=== PATIENT | female | born 2005 | race Hispanic/Latino ===

== ENCOUNTER 2024-08-08 12:31 | Emergency (ER) | payer OTHER ==
[2024-08-08] MEDS ORDERED: predniSONE 20 MG TAB ONE (12:54)
[2024-08-08] MEDS ORDERED: Dexamethasone 10 MG/ML VIAL ONE (12:54)
[2024-08-08] MEDS ORDERED: Albuterol 2.5 MG (3 mL) NEB ONE (13:10)
[2024-08-08] MEDS ORDERED: Ipratropium/Albuterol 3 ML NEB ONE (13:10)
== END 2024-08-08 14:16 | disposition home or self-care (01) ==
LOC: ERS 12:31
DX: R05.1 Acute cough (principal); R06.2 Wheezing
CPT/HCPCS: 71045; 87428; 94644; 96372; J1100; J7512; J7611; J7620

== ENCOUNTER 2025-05-17 20:38 | Observation (INO) | payer MEDICAID, OTHER ==
[2025-05-17] MEDS ORDERED: Ondansetron PF 4 MG/2 ML Vial ONE (22:17)
[2025-05-17 23:15] LABS: #Basophils 0.05 10x3/uL (0.0-0.2); #Eosinophils Less than 0.03 10x3/uL (0.0-0.7); #Monocytes 0.70 10x3/uL (0.11-0.59); #Neutrophils 12.64 10x3/uL (1.40-6.50); %Basophils 0.3 % (0.0-1.0); %Eosinophils 0.1 % (0.0-10.0); %Lymphocytes 10.2 % (28.0-48.0); %Monocytes 4.7 % (0.0-4.0); %Neutrophils 84.2 % (31.0-61.0); Hematocrit 36.2 % (36.0-47.0); Hemoglobin 12.5 g/dL (12.0-16.0); Mean Corpuscular Hemoglobin 28.5 pg (25.0-35.0); Mean Corpuscular Volume 82.6 fL (78.0-98.0); Platelet Count 320 10x3/uL (130-400); Red Blood Cell (RBC) Count 4.38 mill/uL (4.00-5.20); White Blood Cell (WBC) Count 15.02 10x3/uL (4.8-10.8)
[2025-05-17 23:24] LABS: BHCG - Serum Negative (NEGATIVE); Pregs Control Background? CLEAR/WHITE (CLR/WHITE); Pregs Control Bar Appear? YES (CONTROL BAR)
[2025-05-17 23:27] LABS: Lipase 20 U/L (8-78); Magnesium 1.6 mg/dL (1.7-2.2)
[2025-05-17 23:28] LABS: Acetaminophen Less than 10 mcg/mL (Less than 10); Salicylate Less than 8.0 mg/dL (Less than 8.0)
[2025-05-17 23:29] LABS: ALT (SGPT) 56 U/L (Less than 34); AST (SGOT) 34 U/L (11-34); Albumin 3.8 g/dL (3.1-4.5); Alkaline Phosphatase 74 U/L (40-100); Anion Gap 10 mmol/L (10-20); BUN (Urea Nitrogen) 13 mg/dL (7.0-18.7); Bilirubin, Total 0.3 mg/dL (0.3-1.2); Calc. Creatinine Clearance 0 mL/min (70-130); Calcium 8.1 mg/dL (7.8-10.44); Carbon Dioxide 21 mmol/L (22-29); Chloride 111 mmol/L (98-107); Globulin 2.8 g/dL (2.4-3.5); Glucose 119 mg/dL (70-105); Potassium 4.0 mmol/L (3.5-5.1); Sodium 138 mmol/L (136-145)
[2025-05-18] MEDS ORDERED: HYDROcodone/Acetaminophen 5/325 mg Tablet PO PRN (02:21)
[2025-05-18 02:24] VITALS: BMI 33.4
[2025-05-18] MEDS ORDERED: Acetaminophen 325 MG TAB PO PRN (02:30)
[2025-05-18] MEDS: Ondansetron PF 4 MG/2 ML Vial IVP PRN (02:35)
[2025-05-18] MEDS ORDERED: Ropivacaine 0.5% HCl/PF (150 MG/30 ML VIAL) ONE (09:09)
[2025-05-18] MEDS ORDERED: Ropivacaine 0.2% HCl/PF 20 ML ONE (09:09)
[2025-05-18] MEDS ORDERED: fentaNYL PF 100 MCG/2 ML SYRINGE ONE (10:01)
[2025-05-18] MEDS ORDERED: Lidocaine 1% PF 5 ML VIAL ONE (10:01)
[2025-05-18] MEDS ORDERED: SUCCINYLCHOLINE/SOD CL,ISO/PF 200 MG/10 ML SYRINGE FS ONE (10:02)
[2025-05-18] MEDS ORDERED: PROPOFOL 200 MG/20 ML VIAL ONE (10:12)
[2025-05-18] MEDS ORDERED: Rocuronium Bromide 10 MG/ML (10ML VIAL) ONE (10:12)
[2025-05-18] MEDS ORDERED: Ondansetron PF 4 MG/2 ML Vial ONE (11:37)
[2025-05-18] MEDS ORDERED: Ondansetron PF 4 MG/2 ML Vial IVP PRN (12:01)
[2025-05-18] MEDS ORDERED: [UNRECOGNIZED DRUG - OTHER] FS PRN (12:15)
[2025-05-18] MEDS ORDERED: CEFAZOLIN 1 GM VIAL ONE (13:59)
[2025-05-18] MEDS ORDERED: Glycopyrrolate 0.2 MG/ML 5 ML SYRINGE ONE (14:08)
[2025-05-18] MEDS ORDERED: NEOSTIGMINE 3 MG/3 ML SYRINGE ONE (14:08)
[2025-05-18] MEDS: HYDROcodone/Acetaminophen 5/325 mg Tablet PO PRN (18:36)
[2025-05-18] MEDS: FLU (Fluarix Triv) 25-26 (6MOS UP)/PF 45 MCG/0.5 ML Syringe IM ONE (20:46)
[2025-05-19 05:03] LABS: #Basophils 0.03 10x3/uL (0.0-0.2); #Eosinophils 0.04 10x3/uL (0.0-0.7); #Monocytes 1.15 10x3/uL (0.11-0.59); #Neutrophils 7.73 10x3/uL (1.40-6.50); %Basophils 0.3 % (0.0-1.0); %Eosinophils 0.3 % (0.0-10.0); %Lymphocytes 24.5 % (28.0-48.0); %Monocytes 9.6 % (0.0-4.0); %Neutrophils 64.9 % (31.0-61.0); Hematocrit 37.4 % (36.0-47.0); Hemoglobin 12.3 g/dL (12.0-16.0); Mean Corpuscular Hemoglobin 28.3 pg (25.0-35.0); Mean Corpuscular Volume 86.0 fL (78.0-98.0); Platelet Count 305 10x3/uL (130-400); Red Blood Cell (RBC) Count 4.35 mill/uL (4.00-5.20); White Blood Cell (WBC) Count 11.92 10x3/uL (4.8-10.8)
[2025-05-19 12:49] VITALS: BP 146/83; TEMP 98.6
== END 2025-05-19 14:25 | disposition home or self-care (01) ==
LOC: ERS 20:38 → SURG A 05-18 00:52
PROVIDERS: ADMIT Orthopaedic Surgery; ATTEND Orthopaedic Surgery
PROC: 0PSG04Z Reposition Left Humeral Shaft with Internal Fixation Device, Open Approach (ICD-10-PCS; principal; 2025-05-18)
PROC: 3E0T3BZ Introduction of Anesthetic Agent into Peripheral Nerves and Plexi, Percutaneous Approach (ICD-10-PCS; 2025-05-18)
PROC: 01U607Z Supplement Radial Nerve with Autologous Tissue Substitute, Open Approach (ICD-10-PCS; 2025-05-18)
DX: S42.352A Displaced comminuted fracture of shaft of humerus, left arm, initial encounter for closed fracture (principal); S64.40XA Injury of digital nerve of unspecified finger, initial encounter; Z90.49 Acquired absence of other specified parts of digestive tract; V89.2XXA Person injured in unspecified motor-vehicle accident, traffic, initial encounter
CPT/HCPCS: 24500; 36415; 70450; 71045; 72125; 72170; 80053; 80307; 83690; 83735; 84703; 85025; 96365; 96374; 96375; 96376; C1713; C1889; C9353; G0378; J0690; J1100; J2270; J2272; J2405; J2704; J2795; J3010; J3373